=== PATIENT | male | born 1975 | race Caucasian/White ===

== ENCOUNTER 2024-05-10 12:00 | Outpatient (RCR) | payer OTHER, SELFPAY ==
--- NOTE | 2024-05-02 08:54 | HP.PTEVAL_ITS ---
Patient's Visit Information Visit Information Visit Information: TYRONE GABRIEL is a 48 year old M referred to Physical Therapy by Marycarmen Nazario PA-C with a diagnosis of LBP with R LE radiculopathy. Date of Evaluation: 05/02/24 Physical Therapist: Drew Katz, PT, ATC Visit Plan Frequency: 2x /Week Duration: 1 Week Plan: Issue and instruct pt over next 2-3 visits on HEP for REIL, postural education, and core strengthening Subjective Subjective: Pt reports he has had LBP and R LE tingling and numbness for 3 weeks. Pt notes he was washing his wifes vehicle when he experienced a sudden pop. 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 Pt reports he has been taking muscle relaxers and Ibuprophen which are [id number] his pain. Pt notes the pain extends from his R glute to the R hip, and then he also has an area in his R lateral thigh that feels numb. Pt reports sitting in a care and driving for a long period of time will make him very stiff. Pt notes he has been diagnosed with OA of the spine in the past. Pt notes self manipulation also help to decrease his back pain, but only tempora rily. Pt lives at home with his and kids. Pt works with finances. 4/10 pain while sitting here at rest, 10/10 pain at worst. Pt reports it is hard to fall asleep some times secondary to pain. Pain LBP: Pain Intensity (Out of 10): 4 Pain Intensity Range: 10 Objective Objective: Neuro: B LE sensation is WNL to light touch. B patellar tendon reflex= 2/3 MMT: B LE's are grossly 5/5 throughout ROM: Pt is moderately limited with L/S flexion. Minimal limitations with L/S extension. B SB is WNL Repeated movements: RFIS 10x2 increased pain. ZHEN 10x2 decreased pain. REIL 10x2 decreased pain Balance/Special Test Scores Oswestry Low Back Score: 10 Goals Goal 1:: I with HEP 3-4 visits Goal Time Frame: 2 Weeks Goal 2:: Decrease LBP x 50 % to aid with sleep Goal Time Frame: 2 Weeks Goal 3:: Decrease R LE radiculopathy x 50% to aid with tolerance for IADL's Rehabilitation Potential Physical Therapy Diagnosis: Pt has LBP, limited L/S ROM, and R LE radiculopathy secondary to L/S disc derrangement Rehabilitation Potential: Good Anticipated Interventions Patient/Client Instruction: Educate patient on: Condition and Plan of Care For the Purpose of:: To improve self management Therapeutic Exercise to Include: Strength training, Endurance training, Dynamic Lumbar Stabilization and Luisito Exercises For the Purpose of:: To decrease pain, To improve muscle performance and motor function and To increase tolerance to activity/condition/position Text: Thank you for the opportunity to evaluate your patient. For Medicare and Medicare HMO plans, please review the plan of care and approve it. It will need to be FAXED BACK to us at [phone] for Medicare purposes. For Medicare only, by signing this I certify the plan of care. Please let me know if there are questions or concerns regarding this plan of care. Physician Signature: Date:
--- NOTE | 2024-07-10 13:09 | HP.PT.NRP ---
Patient Information Patient Information: TYRONE GABRIEL was seen in my office for initial evaluation on 05/02/24. The following Plan of Care was established for this patient: POC Established Initial Frequency: 2x /Week Initial Duration: 1 Week Anticipated Interventions Patient/Client Instruction: Educate patient on: Condition and Plan of Care For the Purpose of:: To improve self management Therapeutic Exercise to Include: Strength training, Endurance training, Dynamic Lumbar Stabilization and Luisito Exercises For the Purpose of:: To decrease pain, To improve muscle performance and motor function and To increase tolerance to activity/condition/position Last Seen Last Seen: This patient was last seen in our office . Pertinent comments regarding their Physical therapy will appear below: Discharge At this point I will be discontinuing this patient from physical therapy. I would be happy to see this patient again in the future if found appropriate by the physician. Thank you! Drew Katz, PT, ATC Balance/Gait/Functional tests Balance/Special Test Scores Oswestry Low Back Score: 10
== END 2024-05-10 19:00 | disposition home or self-care (01) ==
LOC: PT 12:00
PROVIDERS: PCP General Practice; Referring Provider Physician Assistant; Visit Provider Physician Assistant
DX: M54.16 Radiculopathy, lumbar region (principal)
CPT/HCPCS: 97110; 97161